=== PATIENT | male | born 1975 | race Caucasian/White ===

== ENCOUNTER → 2016-03-24 | Outpatient (REF) | LOC: WSOH 12:03 | DX: Z11.1 Encounter for screening for respiratory tuberculosis (principal) ==

== ENCOUNTER → 2016-04-04 | Outpatient (REF) | LOC: WSOH 10:03 | DX: Z00.00 Encounter for general adult medical examination without abnormal findings (principal) ==

== ENCOUNTER 2018-04-16 17:35 | Observation (INO) | payer OTHER ==
[~2018-04-16] VITALS: Ht 185.4 cm; Wt 83.8 kg
[2018-04-16] MEDS ORDERED: LIPITOR20 MG PO (17:59)
[2018-04-16 18:05] LABS: BASO % 0.4 % (0.0-2.0); EOS # 0.2 (0.0-0.7); EOS % 2.4 % (0-4.0); GRAN % 55.5 % (42.2-75.2); HEMATOCRIT 41.3 % (42.0-52.0); HEMOGLOBIN 14.3 g/dl (13.5-18.0); LYMPH # 2.3 (1.2-3.4); LYMPH % 32.5 % (20.0-51.0); MEAN CELL VOLUME 91 fl (80.0-100.0); MEAN CORPUSCULAR HEMOGLOBIN 32 pg (27.0-31.0); MEAN CORPUSCULAR HGB CONC 35 g/dl (33.0-37.0); MEAN PLATELET VOLUME 9.5 fl (7.4-10.4); MONO # 0.6 (0.1-0.6); MONO % 8.9 % (1.7-9.3); PLATELET COUNT 238 K/mm3 (130-400); RED BLOOD COUNT 4.53 M/mm3 (4.20-5.60); REDCELL DISTRIBUTION WIDTH-CV 12.4 % (11.5-14.5)
[2018-04-16 18:13] LABS: ALANINE AMINOTRANSFERASE 32 U/L (21-72); ALBUMIN 4.7 gm/dL (3.5-5.0); ALKALINE PHOSPHATASE 58 U/L (50-136); ANION GAP 10 mmol/L (7-16); AST,SGOT 37 U/L (15-37); BILIRUBIN,TOTAL 0.5 mg/dL (0.0-1.0); BLOOD UREA NITROGEN 16 mg/dL (9-20); CALCIUM 9.4 mg/dL (8.4-10.2); CARBON DIOXIDE 26 mmol/L (22-30); CHLORIDE 104 mmol/L (98-107); CREATININE, serum 0.96 mg/dL (0.66-1.25); GLUCOSE 103 mg/dL (74-106); POTASSIUM 3.9 mmol/L (3.4-5.0); SODIUM 140 mmol/L (137-145); TOTAL PROTEIN 8.3 gm/dL (6.4-8.2)
[2018-04-16 18:35] LABS: TROPONIN-I < 0.012 ng/mL (0.000-0.035)
[2018-04-16 22:09] VITALS: BP 137/81; PULSE 82; TEMP 98.3
--- NOTE | 2018-04-16 22:30 | NUR ---
Admitted to room 309 from ER with chest pain; denies chest pain at this time, VSS, Will start NS at 100cc/hr per orders-- Emelina SEPTIC T[employer] INSTALLER here to see pt ,,will hold off on Heparin drip per Emelina until next troponin is resulted- Up as tolerated in room
[2018-04-17 00:01] VITALS: BP 126/68; PULSE 66; TEMP 98.4
--- NOTE | 2018-04-17 00:35 | NUR ---
Emelina AGUILARP called normal troponin- order to not give heparin bolus/and not start heparin drip that had been ordered in ER-
[2018-04-17 03:28] VITALS: BP 114/54; PULSE 74; TEMP 98.5
[2018-04-17 06:09] LABS: BASO % 0.4 % (0.0-2.0); EOS # 0.1 (0.0-0.7); EOS % 1.5 % (0-4.0); GRAN % 68.4 % (42.2-75.2); HEMATOCRIT 37.7 % (42.0-52.0); HEMOGLOBIN 13.1 g/dl (13.5-18.0); LYMPH # 1.6 (1.2-3.4); LYMPH % 21.6 % (20.0-51.0); MEAN CELL VOLUME 90 fl (80.0-100.0); MEAN CORPUSCULAR HEMOGLOBIN 31 pg (27.0-31.0); MEAN CORPUSCULAR HGB CONC 35 g/dl (33.0-37.0); MEAN PLATELET VOLUME 9.4 fl (7.4-10.4); MONO # 0.6 (0.1-0.6); MONO % 7.8 % (1.7-9.3); PLATELET COUNT 234 K/mm3 (130-400); RED BLOOD COUNT 4.19 M/mm3 (4.20-5.60); REDCELL DISTRIBUTION WIDTH-CV 12.4 % (11.5-14.5)
[2018-04-17 06:20] LABS: ALBUMIN 3.9 gm/dL (3.5-5.0); BILIRUBIN,TOTAL 0.6 mg/dL (0.0-1.0); CHOLESTEROL RISK RATIO 3.9; CREATININE, serum 0.89 mg/dL (0.66-1.25); POTASSIUM 3.9 mmol/L (3.4-5.0); TOTAL PROTEIN 6.8 gm/dL (6.4-8.2)
--- NOTE | 2018-04-17 06:31 | NUR ---
Quiet night- no chest pain, VSS-
--- NOTE | 2018-04-17 07:00 | NUR ---
Received report, patient is resting in bed with head of bed elevated. He currently has a visitor. Has no needs at this time. Call light is within reach.
[2018-04-17 07:19] VITALS: BP 142/74; PULSE 79; TEMP 98.8
--- NOTE | 2018-04-17 09:12 | NUR ---
While assessing patient he denied pain but did state he had slight pressure in his chest which was not painful. He is questioning if he is just having some anxiety about having his cardiology assessment and testing done. He is continuing to rest in bed. Denies needs. Call light is within reach.
--- NOTE | 2018-04-17 09:35 | NUR ---
Patient is currently having echo done at this time.
--- NOTE | 2018-04-17 09:50 | NUR ---
Initial visit; Patient thanked Sales Development Manager for looking in on him and offering God's blessings and to keep him in Sales Development Manager's prayers.
[2018-04-17 10:15] VITALS: BP 142/74; PULSE 79
[2018-04-17 11:28] VITALS: BP 135/75; PULSE 74; TEMP 99
--- NOTE | 2018-04-17 16:02 | NUR ---
SW student saw patient to discuss discharge planning. Pt lives in [place] with his and obtains his prescriptions from [facility]. Pt didn't have a DPOA. SW asked pt if they would be interested in filling one out and the pt was agreeable. Copies were given to the pt and one was placed on the chart. No other discharge plans anticipated.
[2018-04-17 16:05] VITALS: BP 138/81; PULSE 94; TEMP 98.6
[2018-04-17] MEDS ORDERED: PROTONIX 40MG T40 MG PO (16:28)
== END 2018-04-17 17:50 | disposition home health service (06) ==
LOC: COL.ER 17:35 → MEDICAL 20:33
PROVIDERS: Emergency Medicine; Nurse Practitioner
DX: R07.89 Other chest pain (principal); E78.5 Hyperlipidemia, unspecified; Z79.899 Other long term (current) drug therapy
CPT/HCPCS: A9500; G0378; J7030

== ENCOUNTER 2020-04-30 10:59 | Outpatient (RCR) | payer OTHER ==
[~2020-04-30 10:59] MED LIST: LIPITOR20 MG PO; PROTONIX 40MG T40 MG PO
== END 2020-07-20 | disposition still patient (30) ==
LOC: WSOH
DX: S60.222D Contusion of left hand, subsequent encounter (principal); I10 Essential (primary) hypertension; E78.00 Pure hypercholesterolemia, unspecified; Y99.0 Civilian activity done for income or pay